=== PATIENT | female | born 1960 | race Caucasian/White ===

== ENCOUNTER 2019-04-08 17:10 | Observation (INO) ==
[2019-04-08] MEDS ORDERED: ASPIRIN PO ONE (17:23)
[2019-04-08 18:01] LABS: BASO# 0.02 X1000 (0.0-0.2); BASO% 0.3 % (0.0-0.8); EOS# 0.22 X1000 (0.0-0.7); EOS% 2.8 % (0.0-10.0); HEMATOCRIT 41.2 % (37.0-47.0); HEMOGLOBIN 13.2 g/dL (12.0-16.0); IMM GRAN# 0.02 X1000 (0.0-0.04); IMM GRAN% 0.3 % (0.0-0.5); LYMPH# 2.28 X1000 (1.2-3.4); LYMPH% 29.2 % (20.5-51.1); MCH 28.7 PG (27-31); MCV 89.6 FL (81-99); MONO# 0.67 X1000 (0.11-0.59); MONO% 8.6 % (1.7-9.3); NEUT% 58.8 % (42.2-75.2); PLT 296 X1000 (130-400); RDW 12.9 % (11.5-14.5); WBC 7.81 X1000 (4.8-10.8)
--- NOTE | 2019-04-08 18:02 | EKG Report ---
Test Performed on : 04/08/2019 5:23:53 PM Test Reason : numbness Blood Pressure : / mmHG Vent. Rate : 076 BPM Atrial Rate : 076 BPM P-R Int : 154 ms QRS Dur : 086 ms QT Int : 392 ms P-R-T Axes : 077 074 063 degrees QTc Int : 441 ms Normal sinus rhythm. Normal ECG No previous ECGs available Unconfirmed Result
--- NOTE | 2019-04-08 18:08 | Diag Imaging Result Doc PS360 ---
EXAM: CT HEAD W/O CONTRAST 04/08/2019 HISTORY: numbness TECHNIQUE: This exam was performed using automated exposure control, adjustment of mA or kV according to patient size, and/or use of iterative reconstruction technique. COMMENT: There is no evidence of mass effect, bleed, or abnormal extra-axial fluid collection. The frontal and sphenoid sinuses are clear. There is some mucosal thickening in the visualized portions of the ethmoid air cells on the left. The calvarium is intact. IMPRESSION: No evidence of acute intracranial disease. Electronically signed by Aristeo Zhu 04/08/2019 6:05 PM
--- NOTE | 2019-04-08 18:11 | Diag Imaging Result Doc PS360 ---
EXAM: CHEST-2 VIEWS 04/08/2019 HISTORY: numbness TECHNIQUE: PA and lateral chest COMMENT: There is no evidence of acute cardiac or pulmonary disease. Compared to the previous examination of 10/01/2013 there has been no appreciable change considering differences in technique. IMPRESSION: Stable chest. Electronically signed by Aristeo Zhu 04/08/2019 6:09 PM
[2019-04-08 18:16] LABS: INR 0.91; PROTIME 12.7 Seconds (11.0-16.0)
[2019-04-08 18:17] LABS: AGAP 7; ALKALINE PHOSPHATASE 102 U/L (32-104); BUN 17 mg/dL (8-22); CALCIUM 8.9 mg/dL (8.8-10.2); CHLORIDE 104 mmol/L (98-107); CK PROFILE 46 U/L (24-173); COSMO 279; CREATININE 0.8 mg/dL (0.5-0.9); ESTIMATED GFR > 60; GLUCOSE 93 mg/dL (70-104); GOT 19 U/L (10-30); GPT 15 U/L (10-36); POTASSIUM 4.6 mmol/L (3.5-5.1); PTT 28.4 Seconds (22.3-41.8); SODIUM 139 mmol/L (136-145); TCO2 27 mmol/L (25-35); TOTAL PROTEIN 6.5 g/dL (6.3-8.3)
--- NOTE | 2019-04-08 19:02 | PROVIDER DOCUMENTATION ---
This chart was entered by Elizabeth Richardson Scribe, acting as scribe for Deacon Shearer CRNP. HPI-Neurological Disorder - General Chief Complaint: Numbness Stated Complaint: LEFT SIDE NUMBESS Time Seen by Provider: 04/08/19 17:32 Source: patient Allergies/Adverse Reactions: Patient Allergies Allergy/AdvReac Type Severity Reaction Status Date / Time Penicillins Allergy ANAPHYLAXIS Verified 04/08/19 17:18 - History of Present Illness-Neuro Nature of Presenting Problem: 58 y/o female presents to ED with LUE/LLE weakness/numbness, L facial numbness, and L vision changes onset this afternoon. Pt also complains of L shoulder pain radiating to neck and dizziness. Pt states the only symptoms she has at the time of exam are L arm numbness and vision changes. Pt is alert and oriented. Severity: reports: mild Onset/Duration: reports: this afternoon (onset 200 today) Timing: reports: still present, improving Context: reports: other (L sided weakness/numbness) Character of Altered Mental Status: reports: N/A Any recent trauma/injury?: reports: none Character of Deficits: reports: new weakness, altered sensation, vision problem/glaucoma New weakness or altered sensation location:: reports: LUE, LLE, left facial Cognitive Baseline: alert, oriented x3 Gait Baseline: walks without assistance Associated Symptoms: reports: dizziness, vision changes (L), weakness (LUE, LLE) , other (L facial/LLE/LUE numbness; L shoulder pain raidating to neck) Similar Symptoms Previously?: No Recently seen or treated by another doctor?: No Review of Systems - Adult - REVIEW OF SYSTEMS - ADULT Constitutional: denies: chills, fever Eyes: reports: other (L visual changes). denies: eye pain Ears, Nose, Mouth & Throat: reports: no symptoms reported Cardiovascular: denies: chest pain, palpitations Respiratory: denies: cough, shortness of breath Gastrointestinal: denies: abdominal pain, diarrhea, nausea, vomiting Genitourinary: reports: no symptoms reported Musculoskeletal: reports: joint pain (L shoulder radiating to neck). denies: back pain Integumentary: reports: no symptoms reported Neurological: reports: dizziness/vertigo, numbness (LUE, LLE, L facial), other (L sided weakness). denies: seizure Psychiatric: reports: no symptoms reported Endocrine: reports: no symptoms reported Hematologic/Lymphatic: reports: no symptoms reported Allergic/Immunologic: reports: no symptoms reported All Other Systems: Reviewed and Negative Past History - Adult - PAST MEDICAL HISTORY-ADULT Review of Records: reports: Old Records Reviewed, Nursing Assessment Review, Medications Reviewed Major Childhood Illnesses: reports: denies history Cardiovascular: reports: HTN - PRIOR SURGERIES/PROCEDURES Surgical/Procedure History: reports: none - IMMUNIZATION STATUS Childhood Immunizations: See Nurse Assessment Flu Vaccine: See Nurse Assessment - FAMILY HISTORY Family History: reviewed, not pertinent - SOCIAL HISTORY Smoking: non-smoker Substance Use: none/never Alcohol Use Frequency: never Living Situation: family Physical Exam- Neurological - Physical Exam-Neuro Initial Vital Signs Reviewed: Yes General Appearance: appears well, alert, no apparent distress Eye Exam: bilateral eye: normal inspection, PERRL, EOMI HENMT: normocephalic/atraumatic, moist mucous membranes, normal ENT inspection Head Injury: no evidence of injury Neck: non-tender, full range of motion Respiratory: chest non-tender, lungs clear, normal breath sounds Cardiovascular: normal peripheral pulses, regular rate, rhythm Abdominal Exam: normal bowel sounds, non tender, soft Extremity: normal range of motion, non-tender, normal gait gunite mixer Exam: normal hearing, normal speech, PERRL. negative: abnormal eye position, abnormal gag reflex, abnormal pupil position, abnormal speech, facial asymmetry, facial droop, facial paresthesias, facial weakness, gaze palsy, hearing deficit (R), hearing deficit (L), tongue deviation to R, tongue deviation to L Coordination/Gait: normal finger to nose, normal gait Motor/Sensory: no pronator drift, sensory deficit (questionalble sensation loss to LUE), weak motor strength LUE (mild assessment clinician weakness) Neurologic: gunite mixer II-XII nml as tested, grossly normal, no motor/sensory deficits, motor weakness (LUE), sensory deficit (LUE). negative: aphasia, EOM palsy, facial droop Integumentary: normal color, normal turgor, warm/dry. negative: cyanosis, diaphoresis Psych/Mental Status: normal mood/affect, normal thought content, normal thought process, oriented x 3 - Glascow Coma Scale Best Eye Response: (4) open spontaneously Best Verbal Response: (5) oriented Best Motor Response: (6) obeys commands Progress - PLAN OF CARE/RESULTS Progress/Plan/Lab Results: Vital Signs - 8 hr 04/08/19 17:13 04/08/19 18:34 Temperature 98.1 F Pulse Rate 78 70 Respiratory Rate 18 19 Blood Pressure 172/75 158/66 O2 Sat by Pulse Oximetry 100 100 Laboratory Results - last 24 hr 04/08/19 04/08/19 04/08/19 17:51 17:51 17:51 WBC 7.81 RBC 4.60 Hgb 13.2 Hct 41.2 MCV 89.6 MCH 28.7 MCHC 32.0 L RDW Std Deviation 12.9 Plt Count 296 MPV 10.0 Immature Gran % (Auto) 0.3 Neut % (Auto) 58.8 Lymph % (Auto) 29.2 [place] % (Auto) 8.6 Eos % (Auto) 2.8 Baso % (Auto) 0.3 Immature Gran # (Auto) 0.02 Neut # (Auto) 4.60 Lymph # (Auto) 2.28 [place] # (Auto) 0.67 H Eos # (Auto) 0.22 Baso # (Auto) 0.02 PT INR PTT (Actin FS) Sodium 139 Potassium 4.6 Chloride 104 Carbon Dioxide 27 Anion Gap 7 BUN 17 Creatinine 0.8 Estimated GFR/1.73 m2 > 60 BUN/Creatinine Ratio 21 Glucose 93 Calculated Osmolality 279 Calcium 8.9 Total Bilirubin 0.30 AST 19 ALT 15 Alkaline Phosphatase 102 Creatine Kinase 46 Troponin T Yda-A-Khvfgtgrbxa Pept 592 H Total Protein 6.5 Albumin 4.0 Globulin 3.0 Albumin/Globulin Ratio 2.0 04/08/19 04/08/19 17:51 17:51 WBC RBC Hgb Hct MCV MCH MCHC RDW Std Deviation Plt Count MPV Immature Gran % (Auto) Neut % (Auto) Lymph % (Auto) [place] % (Auto) Eos % (Auto) Baso % (Auto) Immature Gran # (Auto) Neut # (Auto) Lymph # (Auto) [place] # (Auto) Eos # (Auto) Baso # (Auto) PT 12.7 INR 0.91 PTT (Actin FS) 28.4 Sodium Potassium Chloride Carbon Dioxide Anion Gap BUN Creatinine Estimated GFR/1.73 m2 BUN/Creatinine Ratio Glucose Calculated Osmolality Calcium Total Bilirubin AST ALT Alkaline Phosphatase Creatine Kinase Troponin T < 0.010 Gjc-F-Cfpqbymjaoj Pept Total Protein Albumin Globulin Albumin/Globulin Ratio Orders Category Date Time Status Cardiac Monitoring DIRECTED Care 04/08/19 17:21 Active Oxygen Therapy- ED Nursing DIRECTED Care 04/08/19 17:21 Active Saline Loc NOW Care 04/08/19 17:21 Active CHEST-2 VIEWS [RAD] Stat Exams 04/08/19 17:[address] HEAD W/O CONTRAST [CT] Stat Exams 04/08/19 17:22 Completed CBC WITH ELECTRONIC DIFF [HEME] Stat Lab 04/08/19 17:51 Completed CK PROFILE [SP CHEM] Stat Lab 04/08/19 17:51 Completed COMPREHENSIVE METABOLIC PANEL [CHEM] Stat Lab 04/08/19 17:51 Completed PRO B-NATRIURETIC PEPTIDE Stat Lab 04/08/19 17:51 Completed PROTIME WITH INR [COAG] Stat Lab 04/08/19 17:51 Completed PTT [COAG] Stat Lab 04/08/19 17:51 Completed TROPONIN T Stat Lab 04/08/19 17:51 Completed Aspirin Med 04/08/19 17:23 Discontinued 325 mg PO NOW ONE CP/SOB/Palp >45 yrs of Age Stat Oth 04/08/19 17:21 Ordered EKG [EKG] Stat Ther 04/08/19 17:18 Draft discussed with patient that she would be admitted for further observation to [facility] surg floor. Result Diagrams: 04/08/19 17:51 04/08/19 17:51 - EKG 1 Time of EKG reading by physician:: 17:23 EKG Read and Signed by:: Levi Vidal EKG Interpretation (*Must complete 3 of following elements*): Normal Rate: 76 Rhythm: NSR [place]: normal QRS: normal [place] Interval: normal ST Wave: normal - XRAY 1 XRAY Study: Chest Impression: See EMR Report - CT/MRI 1 CT Study: Head Impression: See EMR Report - CONSULTS/PCP/HOSPITALIST Notification #1 *Consult/PCP/Hospitalist*: Dr. Briseno Time Discussed: 18:56 Reason/Comments: TIA observation Consult Disposition: Admit Departure - Departure Date of Disposition Decision: 04/08/19 Time of Disposition Decision: 18:58 DIAGNOSIS: TIA (transient ischemic attack) Disposition: HOME 01 Certified Medical Emergency: Emergent Condition: Stable Referrals and Follow-Ups: Forrest,Jefferson L., MD [Primary Care Provider] - - Critical Care Note This patient required my direct & personal management of CC.: No Attestation - Physician/ BIBI Attestation Patient care was provided by Advanced Practice Provider:: Yes Advanced Practice Provider:: Deacon Shearer Advanced Practice Provider documentation review:: The Mid-level provider do cumentation, treatment plan and medical decision making was reviewed by the physician who agrees with all treatment and medical decision making by the MLP. The physician spent face to face time with patient:: No Advanced Practice Provider documentation review:: Supervising physician onsite and consulted in the evaluation and care of this patient. The physician did not have a face to face encounter with the patient. - NIH Stroke Scale NIH Type: Initial Evaluation Level of Consciousness: 0-Alert LOC Questions (ask month and age): 0-Answers Both Correctly LOC Commands (ask to open & close eyes;make a fist, let go): 0-Obeys Both Cor rectly Best Gaze (horizontal eye movement): 0-Normal Visual (use finger movement, counting or visual threat): 0-No Visual Loss Facial Palsy (show teeth or raise eyebrows & close eyes tght: 0-Symmetrical Movement Motor Function-left arm: 1-Drift Motor Function-right arm: 0-Normal Motor Function-left le-Normal Motor Function-right le-Normal Limb Ataxia(jvdphx-jyub-cexdiy, or heel to valentine): 0-No Ataxia Sensory(pin prick to face,arms,trunk,legs-compare side/side): 1-Mild to Moderate Decrease in Sensation Best Language(name item/read sentence.Ex-Down to Earth): 0-No Aphasia Dysarthria(Pt read words or say words Ex.Mama,Tip-Top,Thanks: 0-Normal Articulation Extinction and Inattention: 0-Normal NIH Total Score: 2 Modified Bozena Score Criteria: 1-no significant disability despite symptoms Stroke tPA Guidelines - Inclusion Criteria for IV tPA 18 years old or older: Yes Ischemic stroke with measurable deficit: No Onset <3 hours ago *OR* 3-4.5 hours ago: No - Exclusion Criteria for IV tPA Evidence of intracranial hemorrhage on CT: No Presentation suggest SAH: No CT reveals defined area of hypodensity: No Evidence of AVM, neoplasm, aneurysm: No Seizure at stroke onset: No Active internal bleeding or acute trauma: No Platelet Count Less Than 100,000: No Heparin Within Last 48 HRS (PTT >Lab normal limits): No INR > 1.7 (warfarin use): No Use IIB/IIIA inhibitors within 24 hours: No Serious Head Trauma Within Last 3 Months: No Arterial Puncture Within Last 7 Days: No Lumbar Puncture Within Last 7 Days: No Repeated systolic Blood Pressure >185 or Diastolic >110: No - Additional Exclusion Criteria for IV tPA Currently on Coumadin: No Patient older than 80: No Prior stroke and diabetes: No Baseline NIHSS score > 25: No - Relative Contraindications to IV tPA CT reveals extensive area of infarct (>1/3 MCA territory): No Minor or rapidly improving stroke symptoms: Yes Major Surgery or Serious Trauma In Previous 14 Days: No AMI within 3 months: No Gastrointestinal or Urinary Tract hemorrhage in Past 21 Days: No Post - AMI pericarditis: No Blood Glucose Less Than 50 mg/dl or Greater Than 400 mg/dl: No - Consultation Candidate for:: NOT A CANDIDATE (NIH score of 2. Minor symptoms that are improving. Onset time >3 hours ago.) - HEART Score HEART Score: History: Slightly Suspicious HEART Score: ECG: Normal HEART Score: Age: 45-65 Years HEART Score: Risk Factors for Atherosclerotic Disease: 1 or 2 Risk Factors HEART Score: Troponin: < or = Normal Limit (HX HTN) Total HEART Score:: 2 This chart was documented by the indicated scribe, (lEizabeth Richardson, Scribe) and accurately reflects the services I performed and decisions made by me, Deacon Shearer CRNP, as attested by the provider's signature.
--- NOTE | 2019-04-08 19:05 | ED EKG INTERP ---
EKG Interpretation - EKG Time of EKG reading by physician:: 17:23 EKG Read and Signed by:: Levi Vidal - EKG # 2 Time of EKG reading by physician:: 19:04 EKG Read and Signed by:: Levi Vidal EKG Interpretation (*Must complete 3 of following elements*): Normal Rate: 76 Rhythm: nsr [place]: normal QRS: normal [place] Interval: normal ST Wave: normal Prior EKG Comparison: unchanged from prior Attestation - Physician/ BIBI Attestation Patient care was provided by Advanced Practice Provider:: Yes Advanced Practice Provider:: Deacon Shearer Advanced Practice Provider documentation review:: The Mid-level provider documentation, treatment plan and medical decision making was reviewed by the physician who agrees with all treatment and medical decision making by the MLP. The physician spent face to face time with patient:: No Advanced Practice Provider documentation review:: Supervising physician onsite and consulted in the evaluation and care of this patient. The physician did not have a face to face encounter with the patient.
[2019-04-09 06:13] LABS: HEMATOCRIT 40.2 % (37.0-47.0); HEMOGLOBIN 12.8 g/dL (12.0-16.0); MCH 28.6 PG (27-31); MCHC 31.8 g/dL (33-37); MCV 89.9 FL (81-99); MPV 10.4 FL (7.4-10.4); RBC 4.47 XMIL (4.2-5.4); RDW 12.8 % (11.5-14.5); WBC 5.98 X1000 (4.8-10.8)
[2019-04-09 06:36] LABS: AGAP 10; ALBUMIN 3.5 g/dL (3.5-5.0); ALKALINE PHOSPHATASE 92 U/L (32-104); BUN 18 mg/dL (8-22); CALCIUM 8.8 mg/dL (8.8-10.2); CHLORIDE 107 mmol/L (98-107); COSMO 286; CREATININE 0.8 mg/dL (0.5-0.9); ESTIMATED GFR > 60; GLUCOSE 85 mg/dL (70-104); GOT 17 U/L (10-30); GPT 13 U/L (10-36); SODIUM 143 mmol/L (136-145); TCO2 26 mmol/L (25-35); TOTAL PROTEIN 6.3 g/dL (6.3-8.3)
[2019-04-09 13:19] LABS: CHOLESTEROL 208 mg/dL (0-200); HDL 68 mg/dL (45-65); LDL 122 mg/dL; TRIGLYCERIDES 89 mg/dL (35-135); VLDL 18 mg/dL
--- NOTE | 2019-04-09 17:11 | Extremity Venous Study ---
Carotid Ultrasound - 04/08/2019 INDICATION: CVA TECHNIQUE: COMPARISON: None FINDINGS: There is moderate echogenic, calcified plaque buildup in both carotid bulbs bilaterally. There is also some plaque buildup throughout the internal carotid arteries bilaterally. No elevated velocity to suggest hemodynamically significant stenosis. Maximum velocity on the right side is 104 cm/s in the distal internal carotid artery. Maximum velocity on the left side is 93 cm/s in the distal internal carotid artery. The vertebral arteries are patent with normal flow. IMPRESSION: Atherosclerotic disease of both carotid bulbs and internal carotid arteries. No hemodynamically significant stenosis. Estimated stenosis is 0-39%. Electronically signed by Dany Willis 04/09/2019 5:09 PM
--- NOTE | 2019-04-09 18:02 | ECHO REPORT ---
ORDER DATE: 04/09/2019 INTERPRETING PHYSICIAN: Dr. Ketan Valenzuela. ECHOCARDIOGRAPHIC MEASUREMENTS: 1. Interventricular septum 0.9 cm. 2. Left ventricular posterior wall 0.9 cm. 3. Diastolic diameter 5.1 cm. 4. Left atrium 3.6 cm. 5. Right atrium 3.3 cm. SUMMARY OF THE TWO-DIMENSIONAL IMAGIN. Tricuspid valve was normal. 2. Aortic valve leaflets were trileaflet. 3. Pulmonic valve was normal. There is trace pulmonary regurgitation. 4. There is mild mitral regurgitation. 5. Mild tricuspid regurgitation. Peak velocity across the tricuspid valve was 2 m/sec. 6. Peak velocity across the aortic valve less than 2 m/sec. There is no aortic stenosis or regurgitation. 7. Normal left ventricular cavity size. 8. Estimated ejection fraction of 65%. 9. There is no pericardial effusion or obvious intracardiac mass or thrombus seen. cc: MD Teddy Joshi MD
--- NOTE | 2019-04-09 18:33 | HISTORY AND PHYSICAL ---
CHIEF COMPLAINT: Left-sided numbness. HPI: This is a 58-year-old female who presented to the emergency room with left upper and lower extremity weakness and numbness, left facial numbness and left vision changes with intermittent dizziness that started in the early afternoon. She denied any syncope, any chest pain or palpitations. According to the chart, symptoms started about 3 or 4 hours prior to presenting to the emergency room and on presentation she only complained of left arm numbness and vision changes. She had no decrease in motor function. She did complain of some left shoulder pain that was exacerbated by movement and it went up into the top of her arm up into the side of her neck, which is chronic. PAST MEDICAL HISTORY: Hypertension. SURGICAL HISTORY: Hysterectomy. SOCIAL HISTORY: She denies any tobacco use. She drinks socially. She denies any illicit drug use. ALLERGIES: Penicillin which causes anaphylaxis. HOME MEDICATIONS: None. REVIEW OF SYSTEMS: Discussed with patient with pertinent positives stated in the HPI. She denied any syncope, any chest pain or palpitations, any change in hearing, any difficulty swallowing, any shortness of breath, cough, fever, chills, recent weight loss or weight gain, night sweats, any nausea, vomiting, diarrhea, constipation, black or bloody vomitus or stools, any hematuria, dysuria, frequency, urgency. PHYSICAL EXAMINATION: GENERAL: This is a 58-year-old female who is sitting up in the bed talking on the phone in no distress. VITAL SIGNS: Blood pressure is 135/58 with a heart rate of 68, respirations 18, temperature 98.3 degrees oral with room air saturations 100%. HEENT: Pupils equal, round, react to light EOMs are intact. Sclerae are anicteric. Head is normocephalic, atraumatic. Mucous membranes are moist. NECK: Supple. Trachea midline. CARDIOVASCULAR: Regular rate and rhythm. S1 and S2 appreciated. She has no lower extremity edema with peripheral pulses palpable x4 extremities. Calves are nontender to palpation. PULMONARY: Breath sounds are clear. No increased work of breathing noted. Chest rises and falls symmetric with respiration. GASTROINTESTINAL: Abdomen soft, nontender, nondistended. Bowel sounds in all 4 quadrants. : She has no CVA or suprapubic tenderness. NEUROLOGIC: She is alert, she is oriented x3, forehead is spared. She has equal nasal flaring. No facial droop. No tongue or uvula deviation. Shoulder shrug is equal. No plantar drift. Contractor Buyer are equal. Nose to finger is 3/3 bilateral. Muscle strength to all 4 extremities is 5/5. Speech is clear. She has equal warmth in all 4 extremities. LABS: WBC is 7.8 with hemoglobin 13.2, hematocrit 41.2, platelets of 296,000. Sodium 139, potassium 4.6, BUN 17, creatinine 0.8, glucose of 93. Troponin is negative. Chest x-ray revealed no evidence of acute cardiopulmonary disease. CT of the head revealed no evidence of acute intracranial disease. ASSESSMENT AND PLAN: 1. Left-sided numbness. 2. Left shoulder pain, chronic. 3. Visual changes although the patient only state "my vision looks funny." 4. Questionable transient ischemic attack. PLAN: The patient has been admitted to the medical-surgical for placed on telemetry which will continue. neuro checks. obtain an echocardiogram and carotid Doppler. check a lipid profile. DVT prophylaxis , SCDs GI prophylaxis, Prilosec. Discussed with Dr Briseno Further treatments pending hospital course. Dictated by TIGRE Flowers for Teddy Briseno MD cc: TIGRE Flowers MD [facility]
--- NOTE | 2019-04-10 05:00 | HISTORY AND PHYSICAL ---
ADDENDUM: Patient seen and examined by myself. Full note dictated and discussed with nurse practitioner. The patient presented to the hospital with left facial numbness, left-sided whole- body numbness left upper and lower extremity. Also noted that she had blurred vision only in her left eye. Currently, she notes the symptoms are resolved. We have admitted her to the hospital. We are going to check echo carotid. CT thankfully was negative and we will continue to follow. Hopefully she can discharge home if symptoms continue to remain improved. cc: Teddy Briseno MD
[2019-04-10] MEDS ORDERED: PRILOSEC PO SCH (07:00)
[2019-04-10 20:21] VITALS: BP 153/78
--- NOTE | 2019-04-11 09:07 | Diag Imaging Result Doc PS360 ---
EXAM: MRI BRAIN W/O CONTRAST HISTORY: TIA TECHNIQUE: MRI brain without contrast. Axial, sagittal, and coronal images obtained in multiple sequences. COMPARISON: CT head 04/08/2019 FINDINGS: No recent infarct. No significant microvascular ischemic changes. No mass or midline shift. No hydrocephalus. No epidural or subdural fluid collection. Normal orbits. No sinus opacification and no air-fluid levels. IMPRESSION: No abnormality identified. Electronically signed by Janes Gandhi 04/11/2019 9:05 AM
--- NOTE | 2019-05-12 19:08 | DISCHARGE SUMMARY ---
ADMISSION DATE: 04/08/2019 DISCHARGE DATE: 04/10/2019 HISTORY OF PRESENT ILLNESS: This is a 58-year-old female who presented to the emergency room with vague complaints of left upper and lower extremity weakness and numbness, left facial numbness and left vision changes with intermittent dizziness that started in the early afternoon. She presented to the emergency room with this complaint. The symptoms started about 3-4 hours prior to her presenting to the emergency room, and on presentation she only complained of a left numbness and vision changes. She had no decreased motor function. PAST MEDICAL HISTORY: Hypertension. PAST SURGICAL HISTORY: She is status post hysterectomy. She is a nonsmoker. Drinks socially. ALLERGIES: Penicillin. PHYSICAL EXAMINATION: Unrevealing. HOSPITAL COURSE: She was admitted and had a history and physical done by the ER physician and by Dr. Birseno on 2 different occasions, and now by me. This is her 4th history and physical for this 1 visit. She presented with a normal CBC. Followup CBC was normal. Coag was normal. Chem- 7: She had some serial blood sugars, all of which were normal. Her electrolytes on admission and then in followup 2 days later were negative. Her BNP was 592. Total proteins were normal. Her triglycerides were 89 and cholesterol was 208. LDL was 122. HDL was 68. Lab giordano, she had fairly unremarkable findings. Her troponin and CPK were negative. As far as her imaging reports, on April [address] which was negative. This was followed up by a carotid study with an estimated stenosis of 0-39, negative. A chest x-ray, nonsmoker, negative. An echocardiogram showed an EF of 65%, otherwise negative. An MRI was negative. Vital Signs: Normal. She was admitted on May 08 and discharged on May 11. She had no symptoms whatsoever. The earlier symptoms could represent an atypical migraine or an atypical seizure disorder. We are going to discharge her on her routine medications, aspirin and omeprazole, and she is going to start back taking her Prilosec. She is also taking Dyazide and has been getting some phentermine from some diet clinic. We recommended that she stop that and take 1 aspirin daily. She will follow up back in the office. cc: Jefferson Clayton MD
== END 2019-04-10 23:55 | disposition home or self-care (01) ==
LOC: P.ED 17:10 → SUATTDRO 20:35 → INTOOBSV 20:35 → P.MEDSURG 20:35
PROVIDERS: ADMIT Internal Medicine; ATTEND Internal Medicine
CPT/HCPCS: 70450; 70551; 71020; 71046; 80053; 80061; 82550; 82948; 83735; 83880; 84484; 85025; 85027; 85610; 85730; 87088; 93005; 93306; 93880; 99285; A9270; XXXXX